=== PATIENT | male | born 1995 | race Caucasian/White ===

== ENCOUNTER 2023-07-01 10:40 | Emergency (ER) | payer BC, OTHER ==
[2023-07-01] MEDS ORDERED: Lorazepam 2 MG/ML VIAL ONE (11:21)
== END 2023-07-01 13:20 | disposition home or self-care (01) ==
LOC: BURERS 10:40
DX: F45.8 Other somatoform disorders (principal); F17.290 Nicotine dependence, other tobacco product, uncomplicated
CPT/HCPCS: 96372; 99283; J2060